=== PATIENT | female | born 1995 | race Caucasian/White ===

== ENCOUNTER 2018-07-15 04:30 | Inpatient (IN) | payer BC, OTHER ==
[2018-07-15] VITALS (79 sets, daily range): BP systolic 96–142; BP diastolic 51–83
[~2018-07-15] VITALS: Ht 162.6 cm; Wt 108.4 kg
--- NOTE | 2018-07-15 04:45 | NUR ---
JANNETTE ARECHIGA presented to unit via from ED, accompanied by s/o, with c/o INDUCTION. JANNETTE ARECHIGA weighed, gowned, voided, and to bed. EFHM and TOCO applied, VS taken. JANNETTE ARECHIGA oriented to bed controls, call light, TV, heat, and A/C controls.
[2018-07-15] MEDS: D5 LR IV SOLUTION 1,000 ML IV SCH ×3 (05:00→16:43)
--- OUTSIDE RECORDS SUMMARY | 2018-07-15 05:09 | XMS REPORT ---
Author Author SYBIL YEUNG Organization [facility] Address [address] [place] [address] Care Team Providers Care Air Saw Operator Name Role Phone GAMALJOSE ELIASRY Unavailable PROBLEMS Type Condition ICD9-CM Code JAM66-EU Code Onset Dates Condition Status SNOMED Code Problem care, subsequent , third trimester Z34.83 Jan, 0 33837837 Problem care, subsequent , third trimester V22.1 Jan 0 12142981 Problem Third trimester at less than 36 weeks Z34.93 Active 301659793 Problem Labral tear of shoulder S43.439A Mar, 0 242339414 Problem Labral tear of shoulder 840.8 Mar, 0 620105210 Problem Biceps tendinitis 726.12 Mar, 0 844788808 Problem Biceps tendinitis M75.20 Mar, 0 [id number] ALLERGIES No Known Allergies ENCOUNTERS Encounter Location Date Diagnosis [address] [address] Jun, [address] [address] Jun, Encounter for supervision of normal first in third trimester Z34.[address] [address] Jun, Encounter for supervision of normal first in third trimester Z34.[address] [address] Jun, Third trimester at less than 36 weeks Z34.[address] [address] May, Encounter for supervision of normal first in third trimester Z34.[address] [address] May, Encounter for supervision of normal first in third trimester Z34.03 [facility] [id number] [address] May, [facility] [address] [address] May, 30 weeks gestation of Z3A.30 [facility] [address] [address] Apr, [facility] [address] [address] Mar, [facility] [address], [place] [address] Mar, [facility] [address], [place] [address] Mar, [facility] [address], [place] [address] Feb, [facility] [address] [address] Dec, [facility] [id number] [address] May, IMMUNIZATIONS No Known Immunizations SOCIAL HISTORY Never Assessed REASON FOR VISIT ob fu PLAN OF CARE Activity Details Follow Up 1 Week Reason:Return Obstetrical Visit VITAL SIGNS Height 64 in 2018-06-11 Weight 224 lbs 2018-06-11 Temperature 98.1 degrees Fahrenheit 2018-06-11 Heart Rate 93 bpm 2018-06-11 Oximetry 98 % 2018-06-11 BMI 38.45 kg/m2 2018-06-11 Blood pressure systolic 118 mmHg 2018-06-11 Blood pressure diastolic 74 mmHg 2018-06-11 MEDICATIONS Medication Instructions Dosage Frequency Start Date End Date Duration Status 28-0.8 MG Orally Once a day 1 tablet 24h 30 day(s) Unknown RESULTS No Results PROCEDURES Procedure Date Ordered Result Body Site STREP CULTURE June 11, 2018 INSTRUCTIONS MEDICATIONS ADMINISTERED No Known Medications
[2018-07-15] MEDS ORDERED: D5 LR IV SOLUTION 1,000 ML IV ONE (05:12)
[2018-07-15] MEDS ORDERED: MINERAL OIL CONCENTRATE 99.9% 15 ML UDC TOP PRN (05:45)
[2018-07-15 05:57] LABS: BASOPHILS % (AUTO) 0 % (0-10); EOSINOPHILS # (AUTO) 0.1 10^3/uL (0.0-0.3); EOSINOPHILS % (AUTO) 1 % (0-10); HEMATOCRIT 33 % (35-52); HEMOGLOBIN 11.2 G/DL (11.5-16.0); LYMPHOCYTES # (AUTO) 2.1 X 10^3 (1.0-4.0); LYMPHOCYTES % (AUTO) 19 % (12-44); MEAN CORPUSCULAR HEMOGLOBIN 28 PG (25-34); MEAN CORPUSCULAR HGB CONC 34 G/DL (32-36); MEAN CORPUSCULAR VOLUME 84 FL (80-99); MEAN PLATELET VOLUME 11.1 FL (7.4-10.4); MONOCYTES # (AUTO) 1.2 X 10^3 (0.0-1.0); MONOCYTES % (AUTO) 11 % (0-12); NEUTROPHILS # (AUTO) 7.3 X 10^3 (1.8-7.8); NEUTROPHILS % (AUTO) 68 % (42-75); PLATELET COUNT 227 10^3/uL (130-400); RED CELL DISTRIBUTION WIDTH 13.4 % (10.0-14.5); WHITE BLOOD COUNT 10.7 10^3/uL (4.3-11.0)
[2018-07-15] MEDS ORDERED: fentaNYL INJECTION 100 MCG/2 ML AMP ONE ×2 (06:07→22:07)
[2018-07-15] MEDS ORDERED: BUPIVACAINE 0.25% 30 ML (SENSORCAINE) VIAL ONE (06:07)
[2018-07-15] MEDS ORDERED: DOCO200C4 PO (06:16)
[2018-07-15] MEDS ORDERED: SUFENTA 0.6MCG/ML BUPIVA 0.125 100 ML ONE (06:22)
[2018-07-15] MEDS: EPIDURAL (SUFENTA 0.6MCG/ML BUPIVA 0.125%) 100 ML BAG EPI PRN ×2 (06:40→13:38)
[2018-07-15] MEDS ORDERED: OXYTOCIN/NORMAL SALINE 500 ML IV SCH (06:42)
--- NOTE | 2018-07-15 07:00 | NUR ---
REPORT FROM ROEL RN, SEE INTERVENTIONS FOR DETAILED ASSESSMENTS AND LABOR DOCUMENTATION.
--- NOTE | 2018-07-15 07:52 | History & Physical-OB ---
OB - Chief Complaint & HPI Date/Time Date of Admission: Date of Admission: Jul 15, 2018 at 05:04 Date seen by a Provider: Jul 15, 2018 Time Seen by a Provider: 07:30 Chief Complaint/History OB-Reason for Admission/Chief: Induction of Labor (Intrauterine at 40 weeks) Hx : 1 Hx Para: 0 Expected Date of Delivery: Jul 15, 2018 Gestational Age in Weeks: 40 Indication for induction: other (Term ) Admission Nurse Assessment Rev: Yes Allergies and Home Medications Allergies Coded Allergies: No Known Drug Allergies (Unverified , 07/15/18) Patient Home Medication List Home Medication List Reviewed: Yes OB - History Hx of Present Care: Yes Ultrasounds: Normal mid trimester US Obstetrical Complications: None Medical Complications: None Patient Past Medical History No pertinenet history Noncontributory Social History/Family History HIV/AIDS: No Recent Infectious Disease Expo: No Sexually Transmitted Disease: No Alcohol Use: Denies Use Recreational Drug Use: No Immunizations Hepatitis A: No Hepatitis B: No OB - Admission Exam Physical Exam HEENT: EOMI Heart: Rhythm Normal Lungs: Clear Abdomen: Gravid Extremities: Normal Cervical Dilatation: 1cm Effacement: Other (30%) Station: -3 Membranes: Intact Amniotic Fluid: Clear Heart Rate: 130's Accelerations: Accelerations Present Decelerations: No Decelerations Short Term Variability: Present Long-Term Variability: Average (6-25) Contractions on Admission: 6-10 Minutes Apart Intensity: Mild Lopez Scoring Tool (Modified) Dilation (cm): 1-2cm (1) Effacement (%): 0-30% (0) Descent/Station: -3 (0) Cervix Consistency: Medium(1) Cervix Position: Posterior (0) Labs Laboratory Tests Test 07/15/18 05:20 Range/Units White Blood Count 10.7 4.3-11.0 10^3/uL Red Blood Count 3.94 L 4.35-5.85 10^6/uL Hemoglobin 11.2 L 11.5-16.0 G/DL Hematocrit 33 L 35-52 % Mean Corpuscular Volume 84 80-99 FL Mean Corpuscular Hemoglobin 28 25-34 PG Mean Corpuscular Hemoglobin Concent 34 32-36 G/DL Red Cell Distribution Width 13.4 10.0-14.5 % Platelet Count 227 130-400 10^3/uL Mean Platelet Volume 11.1 H 7.4-10.4 FL Neutrophils (%) (Auto) 68 42-75 % Lymphocytes (%) (Auto) 19 12-44 % Monocytes (%) (Auto) 11 0-12 % Eosinophils (%) (Auto) 1 0-10 % Basophils (%) (Auto) 0 0-10 % Neutrophils # (Auto) 7.3 1.8-7.8 X 10^3 Lymphocytes # (Auto) 2.1 1.0-4.0 X 10^3 Monocytes # (Auto) 1.2 H 0.0-1.0 X 10^3 Eosinophils # (Auto) 0.1 0.0-0.3 10^3/uL Basophils # (Auto) 0.0 0.0-0.1 10^3/uL OB - Assessment/Plan/Diagnosis Assessment Assessment: induction of labor Admission Dx Intrauterine at 40- weeks Admission Status: Inpatient Order (span 2 midnights) (Intrauterine at 40 weeks) Reason for Inpatient Admission: Pitocin Induction of Labor Plan Plan: Induction (Pitocin Induction of Labor with AROM. Epidural placed. Scalp Electrode applied. Observation. I expect a normal spontaneous vaginal delivery) Induction Method: per Pitocin Protocol Other Plan Artificial Rupture of Membranes. Epidural anesthesia. Scalp Electrode applied. Observation. SYBIL YEUNG DO Jul 15, 2018 07:52
[2018-07-15] MEDS: CATHETER FLUSH 10 ML SYR IV SCH ×2 (09:08→15:44)
[2018-07-15] MEDS ORDERED: LACTATED RINGERS 1,000 ML IV ONE ×2 (09:28)
[2018-07-15] MEDS ORDERED: ONDANSETRON 4 MG/2 ML (SDV) Z0FRAN IV PRN (09:30)
[2018-07-15] MEDS ORDERED: NALOXONE 0.4 MG/ML 1 ML (NARCAN) VIAL IV PRN (09:30)
[2018-07-15] MEDS ORDERED: LIDOCAINE 1% INJ 20 ML 20 ML VIAL INJ ONE (09:45)
[2018-07-15] MEDS: LACTATED RINGERS 1,000 ML IV SCH (18:13)
[2018-07-15] MEDS ORDERED: LACTATED RINGERS 1,000 ML IV SCH ×2 (18:13→18:15)
--- NOTE | 2018-07-15 21:43 | Progress Note-Pre Operative ---
Pre-Operative Progress Note H&P Reviewed The H&P was reviewed, patient examined and no changes noted. Date Seen by Provider: Jul 15, 2018 Time Seen by Provider: 21:40 Date H&P Reviewed: Jul 15, 2018 Time H&P Reviewed: 21:30 Pre-Operative Diagnosis: Intrauterine at 40 weeks with Secondary Arrest of Dilation SYBIL YEUNG DO Jul 15, 2018 21:43
[2018-07-15] MEDS ORDERED: FAMOTIDINE 20MG/2ML IV (PEPCID) ONE (21:44)
[2018-07-15] MEDS ORDERED: METOCLOPRAMIDE INJ 10 MG/2 ML (REGLAN) ONE (21:44)
[2018-07-15] MEDS ORDERED: CITRIC ACID/SOB CIT (BICITRA) 30 ML UDC ONE (21:44)
[2018-07-15] MEDS ORDERED: ceFAZolin 2 GM IV Premixed 50 ML ONE (21:45)
--- NOTE | 2018-07-15 21:49 | Labor Progress Note ---
Labor Progress Note Labor Progress Note Date Seen by Provider: Jul 15, 2018 Time Seen by Provider: 21:40 Subjective: Ms. Blood was admitted for Pitocin Induction of labor. However, over a ten hour period of time she has dilated two centimeters over that time frame and no oil change technician the last four hours. Objective: (Can we insert 24 hour vitals here?) Cervical exam: [3.5 cm/60%/-3 Vertex/AROM] Consistency: [60%] Position: [-2] Presentation: [Vertex] heart tones: [150] beats per minute, [good] variability, [] reactive Tocometer: [250-300] ctx/10 minutes Assessment/Plan: Julia Blood is a (21 /Para 1 / 0,Gestational Age (wks)40 here for [] . CEFM/TOCO Discontinue pitocin/[] Anesthesia: [Bolus epidural for Primary Low Transverse ] We are going to proceed with an immediate for Secondary Arrest of Dilation. The procedure and its associated risks were discussed with Ms. Blood and her family. All questions were answered. Informed consent was obtained. Vitals - Labs Vital Signs - I&O Vital Signs Date Time Temp Pulse Resp B/P (MAP) Pulse Ox O2 Delivery O2 Flow Rate FiO2 07/15/18 13:25 90 20 109/60 (76) 97 Room Air 07/15/18 13:10 100 20 123/69 (87) 98 Room Air 07/15/18 12:55 115 20 102/57 (72) 99 Room Air 07/15/18 12:40 96 20 105/57 (73) 98 Room Air 07/15/18 12:25 95 20 113/58 (76) 98 Room Air 07/15/18 12:10 94 20 119/57 (77) 98 Room Air 07/15/18 11:55 98.3 99 20 132/66 (88) 98 Room Air 07/15/18 11:40 98 20 131/62 (85) 100 Non Rebreather 10.00 07/15/18 11:25 92 20 124/64 (84) 100 Non Rebreather 10.00 07/15/18 11:10 96 18 128/74 (92) 100 Non Rebreather 10.00 07/15/18 10:55 96 18 137/67 (90) 98 Non Rebreather 10.00 07/15/18 10:40 94 18 128/73 (91) 98 Room Air 07/15/18 10:25 97.5 92 18 120/67 (84) 99 Room Air 07/15/18 10:10 94 18 116/60 (78) 98 Room Air 07/15/18 09:55 91 18 115/56 (75) 98 Room Air 07/15/18 09:40 91 18 112/60 (77) 100 Non Rebreather 10.00 07/15/18 09:25 96 18 119/72 (88) 100 Non Rebreather 10.00 07/15/18 09:10 93 18 119/72 (88) 100 Non Rebreather 10.00 07/15/18 08:55 88 18 117/78 (91) 100 Room Air 07/15/18 08:40 80 18 117/67 (84) 100 Room Air 07/15/18 08:25 80 18 107/66 (80) 99 Non Rebreather 10.00 07/15/18 08:10 84 18 111/71 (84) 98 Room Air 07/15/18 07:55 94 18 109/62 (78) 99 Room Air 07/15/18 07:39 96 18 108/71 (83) 100 Room Air 07/15/18 07:36 96.6 100 18 109/69 (82) 100 Room Air 07/15/18 07:33 104 18 112/75 (87) 100 Room Air 07/15/18 07:29 99 18 113/64 (80) 100 Room Air 07/15/18 07:26 87 18 113/66 (82) 99 Room Air 07/15/18 07:23 93 18 113/71 (85) 100 Room Air 07/15/18 07:20 97 18 108/65 (79) 100 Room Air 07/15/18 07:16 91 18 111/65 (80) 100 Room Air 07/15/18 07:13 88 18 112/67 (82) 100 Room Air 07/15/18 07:10 97.1 96 18 111/65 (80) 100 Room Air 07/15/18 07:00 93 18 109/68 (82) 99 Room Air 07/15/18 06:57 102 18 113/70 (84) 99 Room Air 07/15/18 06:54 99 18 100/57 (71) 98 Room Air 07/15/18 06:51 103 18 102/59 (73) 98 Room Air 07/15/18 06:48 96 18 106/59 (75) 97 Room Air 07/15/18 06:45 117 18 102/56 (71) 97 Room Air 07/15/18 06:42 91 18 99/54 (69) 100 Room Air 07/15/18 06:39 102 18 119/60 (79) 100 Room Air 07/15/18 06:36 114 18 142/78 (99) 100 Room Air 07/15/18 06:33 108 18 131/74 (93) 100 Room Air 07/15/18 06:30 113 18 125/75 (92) 100 Room Air 07/15/18 04:50 98.0 100 18 120/72 (88) Room Air Labs Laboratory Tests 07/15/18 05:20: White Blood Count 10.7, Red Blood Count 3.94L, Hemoglobin 11.2L, Hematocrit 33L , Mean Corpuscular Volume 84, Mean Corpuscular Hemoglobin 28, Mean Corpuscular Hemoglobin Concent 34, Red Cell Distribution Width 13.4, Platelet Count 227, Mean Platelet Volume 11.1H, Neutrophils (%) (Auto) 68, Lymphocytes (%) (Auto) 19 , Monocytes (%) (Auto) 11, Eosinophils (%) (Auto) 1, Basophils (%) (Auto) 0, Neutrophils # (Auto) 7.3, Lymphocytes # (Auto) 2.1, Monocytes # (Auto) 1.2H, Eosinophils # (Auto) 0.1, Basophils # (Auto) 0.0 SYBIL YEUNG DO Jul 15, 2018 21:49
[2018-07-15] MEDS ORDERED: KETOROLAC 30 MG/ML VIAL ONE (22:01)
[2018-07-15] MEDS ORDERED: ONDANSETRON 4 MG/2 ML (SDV) Z0FRAN ONE (22:01)
[2018-07-15] MEDS ORDERED: BUPIVACAINE 0.5% 30 ML (SENSORCAINE) VIAL ONE (22:01)
[2018-07-15] MEDS ORDERED: LIDOCAINE PF 2% 5 ML (XYLOCAINE) VIAL ONE (22:01)
[2018-07-15] MEDS ORDERED: OXYTOCIN/NORMAL SALINE 1,000 ML IV ONE (22:01)
[2018-07-15] MEDS ORDERED: MIDAZOLAM 2 MG/2 ML (VERSED) VIAL ONE ×2 (22:46→23:13)
[2018-07-15] MEDS ORDERED: morphine INJ 10 MG/ML 1ML (SYR OR VIAL) ONE ×2 (23:03→23:22)
[2018-07-15] MEDS ORDERED: METHYLERGONOVINE 0.2 MG/ML (METHERGINE) AMP ONE (23:13)
--- NOTE | 2018-07-15 23:35 | Operative Report ---
Operative Report Date of Procedure/Surgery Jul 15, 2018 Surgeon (s) SYBIL YEUNG DO Marketing Rep (s): None Post-Operative Diagnosis Intrauterine at 40 weeks Secondary to Arrest of Dilation Persistent Occiput Posterior Procedure Performed Primary Low Transverse Description of Procedure Anesthesia Type: EPI Estimated blood loss (mL): 1000 ml Specimen(s) collected/removed Placenta Description of the Procedure Ms. Blood was taken to the Operating Room with IV fluids and Kelly Catheter in place. Once in the OR she was prepped and draped in the normal sterile fashion. Epidural was tested and found to be adequate. A pfannesteil incison was made with the scalpel and carried down to the underlying layer of the fascia. The fascia was nicked in the midline and extended laterally. The fascia was grasped and dissected off the rectus muscle. The rectus muscle was in the midline. The parietal peritoneum was entered sharply and extended superiorly and inferiorly with good visualization of the bladder. The vesicouterine peritoneum was identified, dissected off the lower uterine segment. The lower uterine segment was entered sharply, then extended laterally with the bandage scissors. The vertex was delivered in a left occiput manner, then orally and nasally suctioned. A viable female was delivered without complications. The cord was doubly clamped and cut. The was handed off to the waiting pediatric caregiver where NRP was followed. The placenta was manually extracted. The uterus was exteriorized and cleared of all clots and debris. The uterus was closed in a double layer closure with 0-Vicryl. The vesicouterine peritoneum was approximated with 3-0 Vicryl. The uterus was returned to the pelvic cavity. The gutters were then cleared of all clots and copiously irrigated with Normal Saline solution. The parietal peritoneum was approximated with 3-0 Vicryl in a running fashion. The fascia was closed with 0-Vicryl. The subcutaneous tissues were approximated with 3-0 Plain Gut. The skin was closed with 4-0 Monocryl in a subcuticular manner. Both mom and were in good and stable condition. Mom was taken to the recovery room were follow orders and pain management were instituted. IV Fluids: 1700 ml Blood Loss: 1000 ml Urine output: 100 ml Irrigation: 100 ml Findings: Female infant in a persistent occiput posterior presentation, weighing 7 lb 13 oz, with 8, 9. Findings of the Procedure Female infant, 8, 9, weight 7 lb 13 oz, persistent occiput posterior presentation Allergies and Home Medications Allergies Coded Allergies: No Known Drug Allergies (Unverified , 07/15/18) Patient Home Medication List Home Medication List Reviewed: Yes SYBIL YEUNG DO Jul 15, 2018 23:35
[2018-07-15] MEDS ORDERED: HYDROmorphone 2 MG/ML VIAL (DILAUDID) IV ONE (23:45)
[2018-07-15] MEDS ORDERED: morphine INJ 10 MG/ML 1ML (SYR OR VIAL) IVP ONE (23:45)
[2018-07-15] MEDS ORDERED: ONDANSETRON 4 MG/2 ML (SDV) Z0FRAN IVP PRN (23:45)
[2018-07-15] MEDS ORDERED: PROMETHAZINE INJ 25 MG/ML (PHENERGAN) AMP IVP ONE (23:45)
[2018-07-15] MEDS ORDERED: MEPERIDINE (DEMEROL) INJ 50 MG/ML IVP ONE (23:45)
[2018-07-16] VITALS (8 sets, daily range): BP systolic 93–123; BP diastolic 52–60
[2018-07-16] MEDS ORDERED: NEO/POLY/BAC (NEOSPORIN) OINT 15 GM TUBE TOP PRN
[2018-07-16] MEDS ORDERED: MEASLES,MUMPS,RUBELLA 1 EA INJ SC SCH
[2018-07-16] MEDS ORDERED: OXYTOCIN/NORMAL SALINE 500 ML IV SCH
[2018-07-16] MEDS ORDERED: TETANUS,DIPTH,PERTUSS P/F (BOOSTRIX) 0.5 ML VIAL IM SCH
--- NOTE | 2018-07-16 00:30 | NUR ---
Pt. transferred from OB OR to PP room 307 accompanied by staff, , and infant. Pt. and oriented to room, room service, call light, and thermostat. Fluids hooked up to pump, SCDs applied and turned on. Ice water provided. No questions or concerns voiced at this time. Report received from Vesta hsieh RN.
[2018-07-16] MEDS ORDERED: IBUPROFEN 800 MG (MOTRIN) TAB PO ONE ×2 (00:46→23:48)
[2018-07-16] MEDS: LACTATED RINGERS 1,000 ML IV SCH ×2 (01:00→18:11)
[2018-07-16] MEDS ORDERED: fentaNYL (OMNICELL DRIP KIT ONLY) 250 MCG/5 ML AMP ONE (01:29)
[2018-07-16] MEDS ORDERED: NS (IVPB) 100 ML ONE (01:29)
[2018-07-16] MEDS ORDERED: fentaNYL INJECTION 5,000 MCG in EMPTY IV BAG (PVC) 1 EA IV SCH (01:30)
[2018-07-16] MEDS ORDERED: fentaNYL INJECTION 500 MCG in NS (IVPB) 90 ML IV SCH (01:30)
[2018-07-16] MEDS ORDERED: fentaNYL INJECTION 250 MCG/5 ML AMP ONE ×2 (01:51)
[2018-07-16] MEDS ORDERED: fentaNYL INJECTION 100 MCG/2 ML AMP IVP ONE (02:00)
[2018-07-16] MEDS ORDERED: fentaNYL INJECTION 1,000 MCG in NS (IVPB) 80 ML IV SCH ×4 (03:15)
[2018-07-16] MEDS ORDERED: CITRIC ACID/SOB CIT (BICITRA) 30 ML UDC PO ONE (03:30)
[2018-07-16] MEDS ORDERED: METOCLOPRAMIDE INJ 10 MG/2 ML (REGLAN) IV ONE (03:30)
[2018-07-16] MEDS ORDERED: FAMOTIDINE 20MG/2ML IV (PEPCID) IV ONE (03:30)
[2018-07-16] MEDS ORDERED: BISACODYL 10 MG SUPP (DULCOLAX) PR PRN (05:00)
[2018-07-16] MEDS ORDERED: MILK OF MAGNESIA 400 MG/5 ML 30 ML UDC PO PRN (05:00)
[2018-07-16] MEDS: KETOROLAC 30 MG/ML VIAL IVP PRN ×3 (06:14→17:47)
[2018-07-16] MEDS: METOCLOPRAMIDE 10 MG (REGLAN) TAB PO SCH ×4 (06:14→17:48)
[2018-07-16] MEDS: CATHETER FLUSH 10 ML SYR IV SCH ×5 (06:54→18:10)
[2018-07-16] MEDS: D5 LR IV SOLUTION 1,000 ML IV SCH ×2 (06:58→18:10)
--- NOTE | 2018-07-16 07:00 | NUR ---
REPORT FROM JESSIE REYES
--- NOTE | 2018-07-16 07:08 | Progress Note-Standard ---
Standard Progress Note Progress Notes/Assess & Plan Date Seen by a Provider: Jul 16, 2018 Time Seen by a Provider: 06:55 Progress/Assessment & Plan Subjective: Ms. Blood admits to being in a moderate amount of pain, but readily admits that the SALESPERSON DRIVER pump is very helpful. Denies any significant bleeding, nausea or vomiting. Objective: Vital signs are stable Heart: Regular rate and rhythm Lungs: Clear to auscultation bilaterally Abdomen: Decreased bowel sounds, moderate tenderness with palpation, incision is covered by pressure dressing Extremities: No cyanosis or clubbing. +2 pitting edema of lower extremities Assessment: Postoperative Day #1 Primary Low Transverse Plan: Increase bowel function, then advance diet. Ambulate. Shower. Start oral pain medication once SALESPERSON DRIVER pump is discontinued Final Diagnosis Intrauterine at 40 weeks 2. Secondary Arrest of Dilation 3. Persistent Occiput Posterior SEALSYBIL Demarco DO Jul 16, 2018 07:08
--- NOTE | 2018-07-16 07:45 | NUR ---
INITIAL ASSESSMENT COMPLETED, SEE INTERVENTIONS, PT C/O PAIN AT 10. FAMILY AT BEDSIDE.
[2018-07-16] MEDS ORDERED: NS IV SCH (08:45)
[2018-07-16] MEDS ORDERED: FENTANYL IV SCH (08:45)
[2018-07-16] MEDS: DOCUSATE SODIUM 100 MG (COLACE) CAP PO SCH ×2 (09:27→12:27)
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
--- NOTE | 2018-07-16 12:15 | NUR ---
PT C/O OF BIGGS CATHETER, REPOSITIONED, PT REPORTS BIGGS FEELING BETTER AFTER POSITION CHANGE.
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
--- NOTE | 2018-07-16 13:00 | NUR ---
AMBULATED TO BR WITH ASSISTANCE, UNABLE TO VOID, SMALL 50 CENTS PIECE CLOT PASSED, LIGHT LOCHIA NOTED, PERICARE COMPLETED, ABDOMINAL BINDER ON, PT TO CHAIR, SCHEDULED MEDS GIVEN, OXYCODONE GIVEN PO FOR PAIN, ANESTHESIA AT BEDSIDE, PT REFUSED MOM AND DULCOLAX SUPPOSITORY.
--- NOTE | 2018-07-16 13:57 | NUR ---
PT C/O PAIN, DR YEUNG CALLED NEW ORDER RECEIVED.
[2018-07-16] MEDS ORDERED: LORazepam INJ 2 MG/ML (ATIVAN) VIAL IVP NR (14:45)
--- NOTE | 2018-07-16 14:45 | Anesthesia-Regional Post-Op ---
Regional Patient Condition Mental Status: Alert, Oriented x3 Circulation: Same as Pre-Op Headache: Absent Sensation: Full Recovery Motor Block: Absent Post Op Complications Complications None Follow Up Care/Instructions Patient Instructions None needed. Anesthesia/Patient Condition Patient is doing well, no complaints, stable vital signs, no apparent adverse anesthesia problems. No complications reported per nursing. SAV BERKOWITZ CRNA Jul 16, 2018 14:45
--- NOTE | 2018-07-16 15:10 | NUR ---
ATIVAN 2MG GIVEN SIVP, LAB HERE FOR BLOOD DRAW. PT AMBULATED TO BR WITH RN ASSIST.
--- NOTE | 2018-07-16 15:25 | NUR ---
VOIDED WELL WITHOUT DIFFICULTY, AMBULATED BACK TO BED.
[2018-07-16 15:26] LABS: BASOPHILS % (AUTO) 0 % (0-10); EOSINOPHILS % (AUTO) 0 % (0-10); HEMATOCRIT 22 % (35-52); HEMOGLOBIN 7.2 G/DL (11.5-16.0); LYMPHOCYTES % (AUTO) 8 % (12-44); MEAN CORPUSCULAR HEMOGLOBIN 28 PG (25-34); MEAN CORPUSCULAR HGB CONC 32 G/DL (32-36); MEAN CORPUSCULAR VOLUME 87 FL (80-99); MEAN PLATELET VOLUME 10.5 FL (7.4-10.4); MONOCYTES # (AUTO) 1.4 X 10^3 (0.0-1.0); MONOCYTES % (AUTO) 11 % (0-12); NEUTROPHILS # (AUTO) 10.8 X 10^3 (1.8-7.8); NEUTROPHILS % (AUTO) 82 % (42-75); PLATELET COUNT 173 10^3/uL (130-400); RED CELL DISTRIBUTION WIDTH 13.4 % (10.0-14.5); WHITE BLOOD COUNT 13.3 10^3/uL (4.3-11.0)
--- NOTE | 2018-07-16 16:54 | NUR ---
OXYCODONE GIVEN PO FOR PAIN, AMBULATED TO BR WITH RN ASSIST.
--- NOTE | 2018-07-16 17:30 | NUR ---
DR YEUNG CALLED WITH [facility], NEW ORDERS RECEIVED. PT RESTING IN CHAIR, UPDATED PT AND FAMILY.
[2018-07-16] MEDS ORDERED: MAGNESIUM CITRATE 300 ML BTL PO NR (17:45)
--- NOTE | 2018-07-16 17:55 | NUR ---
SCHEDULED MEDS GIVEN
--- NOTE | 2018-07-16 18:05 | NUR ---
MAG CITRATE GIVEN PO.
--- NOTE | 2018-07-16 20:40 | NUR ---
ASSESSMENT COMPLETED. PT REQUESTING ADDITIONAL DOSE OF MAG CITRATE. CALLED. ORDER RECEIVED.
[2018-07-16] MEDS ORDERED: MAGNESIUM CITRATE 300 ML BTL PO ONE (22:00)
--- NOTE | 2018-07-17 | NUR ---
pt reports +bm, sandwich tray given.
[2018-07-17] MEDS: METOCLOPRAMIDE 10 MG (REGLAN) TAB PO SCH (01:08)
[2018-07-17] MEDS: IBUPROFEN 800 MG (MOTRIN) TAB PO SCH ×2 (01:08→06:30)
[2018-07-17 02:42] VITALS: BP 105/57
[2018-07-17 04:35] VITALS: BP 106/66
[2018-07-17] MEDS ORDERED: OXC5T PO (06:39)
[2018-07-17] MEDS ORDERED: IBUP-1780 PO (06:39)
[2018-07-17] MEDS ORDERED: DOCU100C37 PO (06:39)
[2018-07-17 06:43] LABS: BASOPHILS % (AUTO) 0 % (0-10); EOSINOPHILS # (AUTO) 0.1 10^3/uL (0.0-0.3); EOSINOPHILS % (AUTO) 1 % (0-10); HEMATOCRIT 21 % (35-52); LYMPHOCYTES # (AUTO) 1.6 X 10^3 (1.0-4.0); LYMPHOCYTES % (AUTO) 14 % (12-44); MEAN CORPUSCULAR HEMOGLOBIN 28 PG (25-34); MEAN CORPUSCULAR HGB CONC 32 G/DL (32-36); MEAN CORPUSCULAR VOLUME 88 FL (80-99); MEAN PLATELET VOLUME 10.1 FL (7.4-10.4); MONOCYTES # (AUTO) 1.2 X 10^3 (0.0-1.0); MONOCYTES % (AUTO) 11 % (0-12); NEUTROPHILS # (AUTO) 8.7 X 10^3 (1.8-7.8); NEUTROPHILS % (AUTO) 75 % (42-75); PLATELET COUNT 186 10^3/uL (130-400); RED CELL DISTRIBUTION WIDTH 13.7 % (10.0-14.5); WHITE BLOOD COUNT 11.6 10^3/uL (4.3-11.0)
[2018-07-17 06:46] LABS: HEMOGLOBIN 6.8 G/DL (11.5-16.0)
--- NOTE | 2018-07-17 06:46 | Discharge Summary ---
Diagnosis/Chief Complaint Date of Admission Jul 15, 2018 at 05:04 Date of Discharge July 17, 2018 Discharge Date: Jul 17, 2018 Discharge Time: 06:40 Admission Diagnosis Admission Diagnosis Intrauterine at 40 weeks Discharge Diagnosis Intrauterine at 40 weeks Secondary Arrest of Dilation Persistent Occiput Posterior Reason Hospital Visit Pitocin Induction of labor Discharge Summary Hospital Course Was the Problem List Reviewed?: Yes Hospital Course Ms. Blood was admitted to the hospital for Induction of Labor. She received a epidural and had AROM. After approximately 10 hours of Pitocin and adequate contractions she only progressed to three centimeters. She was taken back for a Primary Low Transverse . She delivered a healthy viable female . The remainder of her hospitalization was unremarkable. Her hemoglobin was low, but she was told that it would be followed as an outpatient. Her vital signs were stable at time of discharge. On Postoperative Day #2 Ms. Blood was ambulating, voiding, moving her bowels, tolerating a Regular Diet and controlling her pain with oral medications She will be discharge with instructions, prescriptions, and a follow up appointment. Labs Laboratory Tests 07/15/18 05:20: Red Blood Count 3.94L, Hemoglobin 11.2L, Hematocrit 33L, Mean Platelet Volume 11.1H, Monocytes # (Auto) 1.2H 07/16/18 15:09: Red Blood Count 2.56L, Hemoglobin 7.2#L, Hematocrit 22L, Mean Platelet Volume 10.5H, Monocytes # (Auto) 1.4H, White Blood Count 13.3H, Neutrophils (%) (Auto) 82H, Lymphocytes (%) (Auto) 8L, Neutrophils # (Auto) 10.8H 07/17/18 06:28: Procedures None. Discharge Physical Examination Allergies: Coded Allergies: No Known Drug Allergies (Unverified , 07/15/18) Vitals & I&Os Vital Signs Date Time Temp Pulse Resp B/P (MAP) Pulse Ox O2 Delivery O2 Flow Rate FiO2 07/17/18 04:35 98.1 110 20 106/66 (79) 96 Room Air 07/16/18 16:00 10.00 10.00 General Appearance: Alert, Oriented X3, No Acute Distress HEENT: PERRLA, EOMI Respiratory: Clear to Auscultation Cardiovascular: Regular Rate, No Murmurs Abdominal: Normal Bowel Sounds, Other (Mildly tender, incision is clean, dry and well approximated) Extremities: No Clubbing, No Cyanosis Skin: No Rashes Neuro: Normal Gait, Normal Speech Psych/Mental Status: Mental Status NL Discharge Home Medications Reviewed and agree with Discharge Medication list on patient's Discharge Instruction sheet Instructions to Patient/Family Please see electronic discharge instructions given to patient. Clinical Quality Measures DVT/VTE Risk/Contraindication: Risk Factor Score Per Nursin RFS Level Per Nursing on Admit: 2=Moderate SYBIL YEUNG DO Jul 17, 2018 06:46
[2018-07-17 08:50] VITALS: BP_SYST 94; BP_SYST 99; BP_DIAS 59
[2018-07-17 10:53] VITALS: BP 94/59
--- NOTE | 2018-07-17 14:30 | NUR ---
Home discharge instructions given to parents - verbalized understanding.To exit via wheelchair, accompanied by this nurse and .
== END 2018-07-17 14:30 | disposition home or self-care (01) | DRG 788 ==
LOC: LDRP 05:04
PROVIDERS: ADMIT Obstetrics & Gynecology; ATTEND Obstetrics & Gynecology
PROC: 10D00Z1 Extraction of Products of Conception, Low, Open Approach (ICD-10-PCS; principal; 2018-07-15 22:20)
DX: O62.1 Secondary uterine inertia (principal); O64.0XX0 Obstructed labor due to incomplete rotation of fetal head, not applicable or unspecified; Z3A.40 40 weeks gestation of pregnancy; Z37.0 Single live birth
CPT/HCPCS: 36415; 85025; 86850; 86900; 86901; 90715; 94664